=== PATIENT | male | born 1960 ===

== ENCOUNTER 2019-04-29 19:24 | Emergency (ER) | payer BC ==
[~2019-04-29] VITALS: Ht 188 cm; Wt 111.1 kg
== END 2019-04-29 20:34 | disposition home or self-care (01) ==
LOC: ER 19:24
DX: M75.101 Unspecified rotator cuff tear or rupture of right shoulder, not specified as traumatic (principal); Z87.891 Personal history of nicotine dependence
CPT/HCPCS: 73030; 99283-25; A9270